=== PATIENT | male | born 1955 | race Caucasian/White ===

== ENCOUNTER 2017-02-25 22:22 | Emergency (ER) | payer OTHER ==
[~2017-02-25] VITALS: Ht 182.9 cm; Wt 100.0 kg
[~2017-02-25 22:22] MED LIST: ALBU8HFA IH; CHOL200035 PO; DIVA500T69 PO; HALO10TA15 PO; LACHLOT TP; LEVE500T53 PO; MULT-29 PO; OLAN15TA2 PO; SULF1TAB42 PO; TERB12CR3 TP
[2017-02-25] MEDS ORDERED: SERT50TA12 PO (22:39)
[2017-02-25] MEDS ORDERED: RISP2TAB76 PO (22:39)
[2017-02-25 22:56] LABS: HEMOGLOBIN 13.2 g/dL (13.5-17.5); MEAN CORPUSCULAR HEMOGLOBIN 31.3 pg (26.0-34.0); MEAN CORPUSCULAR HGB CONC 33.8 G/dL (31.0-37.0); MEAN CORPUSCULAR VOLUME 93 fL (80-100); PLATELET COUNT (AUTO) 150 K/uL (150-450); RED BLOOD CELL COUNT(AUTO) 4.21 MIL/uL (4.50-5.90); RED CELL DISTRIBUTION WIDTH 13.9 % (11.5-14.5); WHITE BLOOD COUNT (AUTO) 12.6 K/uL (4.5-11.0)
[2017-02-25 23:06] LABS: CALCIUM, TOTAL 8.7 mg/dL (8.8-10.5); CREATININE 1.46 mg/dL (0.60-1.30)
[2017-02-25 23:13] LABS: ALBUMIN 3.3 g/dL (3.4-5.0); BILIRUBIN,TOTAL 0.2 mg/dL (0.1-1.0); TOTAL PROTEIN, SERUM 6.1 g/dL (6.4-8.2)
[2017-02-25 23:25] LABS: BAND NEUTROPHILS % (MANUAL) 24 % (1-5); EOSINOPHILS % (MANUAL) 1 % (1-6); LYMPHOCYTES % (MANUAL) 1 % (22-44); TOTAL CELLS COUNTED 100
[2017-02-26] MEDS ORDERED: PERTUSS(ACELL),DIPH,TET VAC/PF 0.5 ML VIAL IM ONE (01:30)
[2017-02-26] MEDS ORDERED: POTASSIUM CHLORIDE 20 MEQ ER TABLET PO ONE (01:30)
[2017-02-26 01:58] VITALS: BP 122/79
== END 2017-02-26 02:21 | disposition home or self-care (01) ==
LOC: EMS 22:25
DX: S01.81XA Laceration without foreign body of other part of head, initial encounter (principal); F17.210 Nicotine dependence, cigarettes, uncomplicated; W19.XXXA Unspecified fall, initial encounter; Y93.89 Activity, other specified; Y92.89 Other specified places as the place of occurrence of the external cause; Y99.8 Other external cause status
CPT/HCPCS: 90471; 90715; 93005; 99285

== ENCOUNTER 2019-11-02 13:25 | Inpatient (IN) | payer MEDICARE, MEDICAID ==
[~2019-11-02] VITALS: Ht 193 cm; Wt 82.0 kg
[~2019-11-02 13:25] MED LIST changes: -ALBU8HFA IH; +ASPI-728 PO; +ATOR10TA84 PO; -CHOL200035 PO; -DIVA500T69 PO; -HALO10TA15 PO; -LACHLOT TP; -LEVE500T53 PO; -MULT-29 PO; -OLAN15TA2 PO; +RISP2TAB76 PO; +SERT50TA12 PO; -SULF1TAB42 PO; -TERB12CR3 TP
[2019-11-02] MEDS ORDERED: LORazepam 2 MG TABLET PO PRN (18:00)
[2019-11-02] MEDS ORDERED: HALOPERIDOL 5 MG TABLET PO PRN (18:00)
[2019-11-02] MEDS ORDERED: ZOLPIDEM TARTRATE 10 MG TABLET PO PRN (18:00)
[2019-11-02 18:37] LABS: BASOPHILS % (AUTO) 0.4 % (0.0-2.0); EOSINOPHILS % (AUTO) 0.6 % (1.0-6.0); HEMATOCRIT 31.8 % (41-53); HEMOGLOBIN 10.3 g/dL (13.5-17.5); LYMPHOCYTES # (AUTO) 0.7 K/uL (1.0-4.8); LYMPHOCYTES % (AUTO) 7.5 % (22.0-44.0); MEAN CORPUSCULAR HEMOGLOBIN 25.2 pg (26.0-34.0); MEAN CORPUSCULAR HGB CONC 32.3 G/dL (31.0-37.0); MEAN CORPUSCULAR VOLUME 78 fL (80-100); MONOCYTES % (AUTO) 11.1 % (2.0-9.0); NEUTROPHILS # (AUTO) 7.2 K/uL (1.8-7.7); NEUTROPHILS % (AUTO) 80.4 % (40.0-70.0); PLATELET COUNT (AUTO) 448 K/uL (150-450); RED BLOOD CELL COUNT(AUTO) 4.09 MIL/uL (4.50-5.90); RED CELL DISTRIBUTION WIDTH 14.9 % (11.5-14.5)
[2019-11-02 19:14] LABS: ANION GAP 13 mmol/L (8-16); CALCIUM, TOTAL 9.3 mg/dL (8.8-10.5); CARBON DIOXIDE 18 mmol/L (22-29); CHLORIDE 99 mmol/L (98-107); CREATININE 1.23 mg/dL (0.60-1.30); GLOMERULAR FILTR. RATE CALC 59 mL/min (>60); GLUCOSE,RANDOM 128 mg/dL (70-110); POTASSIUM 4.5 mmol/L (3.5-5.1); SODIUM SERUM 130 mmol/L (136-145); UREA NITROGEN, BLOOD 20 mg/dL (7-18)
[2019-11-02 19:20] LABS: ALANINE AMINOTRANSFERASE 19 U/L (12-78); ALBUMIN 2.4 g/dL (3.4-5.0); ALKALINE PHOSPHATASE 74 U/L (46-116); ASPARTATE AMINOTRANSFERASE 15 U/L (15-37); BILIRUBIN,TOTAL 0.3 mg/dL (0.1-1.0); TOTAL PROTEIN, SERUM 7.3 g/dL (6.4-8.2)
[2019-11-03 03:04] VITALS: BP 98/78
[2019-11-03] MEDS ORDERED: INFLUENZA VIRUS VACCINE QVS 2019-20 (3YR+)/PF 60 MCG/0.5 ML SYRINGE IM ONE (04:00)
[2019-11-03 08:35] VITALS: BP 133/71
[2019-11-03 09:00] LABS: CHOL/HDL RATIO 2.2 (4.2-7.3); FREE T4 (FREE THYROXINE) 1.3 ng/dL (0.76-1.46); THYROID STIMULATING HORMONE 0.75 uIU/mL (0.36-3.74)
[2019-11-03] MEDS: ASPIRIN 81 MG EC TABLET PO SCH (09:10)
[2019-11-03] MEDS: ATORVASTATIN CALCIUM 10 MG TABLET PO SCH (09:10)
[2019-11-03] MEDS: BACITRACIN 28.4 GM OINTMENT TP SCH ×2 (11:20→18:38)
[2019-11-03 16:13] VITALS: BP 93/60
[2019-11-03] MEDS ORDERED: DOCUSATE SODIUM 100 MG CAPSULE PO PRN (17:00)
[2019-11-03] MEDS ORDERED: MAG HYDROX/AL HYDROX/SIMETH ES 30 ML SUSPENSION UDCUP PO PRN (17:00)
[2019-11-03] MEDS ORDERED: CloNIDine HCL 0.1 MG TABLET PO PRN (17:00)
[2019-11-03] MEDS ORDERED: PETROLATUM,WHITE 28 GM JELLY TP PRN (17:00)
[2019-11-03] MEDS ORDERED: NICOTINE 14 MG/24 HOUR PATCH TD PRN (17:00)
[2019-11-03] MEDS ORDERED: MAGNESIUM HYDROXIDE SUSPENSION 30 ML UDCUP PO PRN (17:00)
[2019-11-03] MEDS ORDERED: ONDANSETRON HCL 4 MG TABLET PO PRN (17:00)
[2019-11-03] MEDS ORDERED: ALBUTEROL SULFATE HFA 90 MCG/PUFF 8 GM INHALER IH PRN (17:00)
[2019-11-03] MEDS ORDERED: GuaiFENesin/D-METHORPHAN [SUGAR-FREE] 200-20MG/10 ML SYRUP UDCUP PO PRN (17:00)
[2019-11-03] MEDS ORDERED: LOPERAMIDE HCL 2 MG CAPSULE PO PRN (17:00)
[2019-11-03] MEDS ORDERED: IBUPROFEN 400 MG TABLET PO PRN (17:00)
[2019-11-03] MEDS: RisperiDONE 2 MG TABLET PO SCH (17:00)
[2019-11-03] MEDS ORDERED: ACETAMINOPHEN 325 MG TABLET PO PRN (17:00)
[2019-11-04 02:53] VITALS: BP 130/75
[2019-11-04 08:00] VITALS: BP 109/71
[2019-11-04] MEDS: SERTRALINE HCL 100 MG TABLET PO SCH (08:19)
[2019-11-04] MEDS: ASPIRIN 81 MG EC TABLET PO SCH (08:19)
[2019-11-04] MEDS: ATORVASTATIN CALCIUM 10 MG TABLET PO SCH (08:20)
[2019-11-04] MEDS: RisperiDONE 2 MG TABLET PO SCH ×2 (08:20→18:53)
[2019-11-04] MEDS: CEPHALEXIN MONOHYDRATE 500 MG CAPSULE PO SCH ×3 (08:21→18:53)
[2019-11-04] MEDS: BACITRACIN 28.4 GM OINTMENT TP SCH ×2 (08:22→18:52)
[2019-11-04 16:03] VITALS: BP 121/79
[2019-11-05] MEDS: RisperiDONE 2 MG TABLET PO SCH (08:20)
[2019-11-05] MEDS: ASPIRIN 81 MG EC TABLET PO SCH (08:20)
[2019-11-05] MEDS: CEPHALEXIN MONOHYDRATE 500 MG CAPSULE PO SCH ×2 (08:20→13:09)
[2019-11-05] MEDS: ATORVASTATIN CALCIUM 10 MG TABLET PO SCH (08:21)
[2019-11-05] MEDS: SERTRALINE HCL 100 MG TABLET PO SCH (08:21)
[2019-11-05] MEDS: BACITRACIN 28.4 GM OINTMENT TP SCH ×2 (08:21→08:26)
[2019-11-05 08:58] VITALS: BP 152/65
[2019-11-05] MEDS ORDERED: MULTIVITAMINS WITH MINERALS, THERAPEUTIC TABLET PO SCH (09:00)
[2019-11-05] MEDS ORDERED: MULT-1239 PO (10:14)
[2019-11-05] MEDS ORDERED: CEPH-582 PO (10:14)
[2019-11-05] MEDS ORDERED: NYST15PO3 TP (10:28)
[2019-11-05] MEDS ORDERED: NYSTATIN 15 GM POWDER BOTTLE TP SCH (10:30)
[2019-11-05] MEDS ORDERED: RISP2 PO (10:39)
[2019-11-05] MEDS ORDERED: SERT100T12 PO (10:39)
== END 2019-11-05 14:00 | DRG 885 ==
LOC: EMS 13:26 → 3EX 22:30
PROVIDERS: ADMIT Psychiatry & Neurology Psychiatry; ATTEND Psychiatry & Neurology Psychiatry
DX: F31.9 Bipolar disorder, unspecified (principal); E43 Unspecified severe protein-calorie malnutrition; Z93.3 Colostomy status; E87.1 Hypo-osmolality and hyponatremia; L03.311 Cellulitis of abdominal wall; D64.9 Anemia, unspecified; E16.2 Hypoglycemia, unspecified; E78.5 Hyperlipidemia, unspecified; L24.9 Irritant contact dermatitis, unspecified cause; Z79.899 Other long term (current) drug therapy; Z87.891 Personal history of nicotine dependence; Z68.22 Body mass index [BMI] 22.0-22.9, adult; Z28.21 Immunization not carried out because of patient refusal
CPT/HCPCS: 83036; 84439; 84443; G0378; G0480